=== PATIENT | female | born 1990 | race African-American/Black ===

== ENCOUNTER 2022-04-24 15:19 | Day surgery (SDC) | payer OTHER ==
[2022-04-24 15:42] VITALS: BMI 34.0
== END 2022-04-24 18:02 | disposition home or self-care (01) ==
LOC: CSHLD/OP 15:19
PROVIDERS: ATTEND Family Medicine
DX: O36.8130 Decreased fetal movements, third trimester, not applicable or unspecified (principal); Z36.89 Encounter for other specified antenatal screening; Z3A.34 34 weeks gestation of pregnancy
CPT/HCPCS: 76805; 76819

== ENCOUNTER 2022-05-25 09:29 | Inpatient (IN) | payer OTHER ==
[~2022-05-25 09:29] MED LIST: Bupivacaine HCl 0.5%/Epinephrine 1:200,000/PF 30 ml Vial ONE; Bupivacaine/Epinephrine 0.25% 30 ML VIAL ONE; Lidocaine 2% PF 5 ML VIAL ONE; Terbutaline Sulfate 1 MG/ML VIAL ONE
[2022-05-25] MEDS ORDERED: Misoprostol 200 MCG TAB PR PRN (10:33)
[2022-05-25] MEDS ORDERED: Promethazine HCl 25 MG/ML VIAL IM PRN ×4 (10:33→21:42)
[2022-05-25] MEDS ORDERED: Lidocaine 1% (PF) 30 ML VIAL SC PRN (10:33)
[2022-05-25] MEDS ORDERED: Carboprost 250 MCG/ML AMP IM PRN (10:33)
[2022-05-25] MEDS ORDERED: Diphenoxylate HCl/Atropine Tablet PO PRN (10:33)
[2022-05-25] MEDS ORDERED: Butorphanol Tartrate 1 MG/ML VIAL SLOW IVP PRN (10:33)
[2022-05-25] MEDS ORDERED: hydrALAZINE 20 MG/ML VIAL SLOW IVP PRN ×2 (10:33→21:42)
[2022-05-25] MEDS ORDERED: HYDROcodone/Acetaminophen 5/325 mg Tablet PO PRN ×2 (10:33→21:42)
[2022-05-25] MEDS ORDERED: Methylergonovine 0.2 MG/ML VIAL IM PRN (10:33)
[2022-05-25] MEDS ORDERED: Tranexamic Acid 1,000 MG in Sodium Chloride 0.9% 250 ML 250 ML IVPB PRN (10:33)
[2022-05-25] MEDS ORDERED: Acetaminophen 500 MG TAB PO PRN (10:33)
[2022-05-25] MEDS ORDERED: Ibuprofen 800 MG TAB PO PRN (10:33)
[2022-05-25] MEDS ORDERED: Ondansetron PF 4 MG/2 ML Vial IVP PRN ×4 (10:33→21:42)
[2022-05-25] MEDS ORDERED: NS w/ Oxytocin 30 units 500 ML IV SCH ×2 (10:45)
[2022-05-25] MEDS ORDERED: Fentanyl 2 mcg/Bup 0.1% Cadd 100 ML ONE (11:32)
[2022-05-25 11:39] LABS: Hemoglobin 11.2 g/dL (12.0-15.5); Mean Corpuscular HGB CONC 32.7 g/dL (32.0-36.0); Mean Corpuscular Hemoglobin 28.2 pg (27.0-33.0); Mean Corpuscular Volume 86.1 fl (81.6-98.3); Mean Platelet Volume 11.5 fl (7.4-10.4); Platelet Count 204 10x3/uL (150-450); RBC Distribution Width 14.2 % (11.5-14.5); Red Blood Cell (RBC) Count 3.97 10x6/uL (3.90-5.03); White Blood Cell (WBC) Count 4.3 10x3/uL (3.5-10.5)
[2022-05-25] MEDS ORDERED: Lactated Ringer's 500 ML IV PRN (11:43)
[2022-05-25] MEDS ORDERED: ePHEDrine Sulfate 50 MG/10 ML VIAL SLOW IVP PRN (11:43)
[2022-05-25] MEDS ORDERED: Naloxone HCl 0.4 mg/ml Vial IVP PRN ×4 (11:43→16:29)
[2022-05-25] MEDS ORDERED: Moisturizing Cream (Eucerin) 113 GM JAR TOP PRN ×2 (11:43→16:29)
[2022-05-25] MEDS ORDERED: diphenhydrAMINE 50 MG/ML VIAL IVP PRN ×2 (11:43→16:29)
[2022-05-25] MEDS ORDERED: Acetaminophen 325 MG TAB PO PRN (11:43)
[2022-05-25] MEDS ORDERED: Communication Order-Pharmacy FS SCH ×2 (11:45→16:30)
[2022-05-25] MEDS ORDERED: Fentanyl 2 mcg/Bupivacaine 0.1% Cassette 100 ML EPIDURAL SCH (11:45)
[2022-05-25 11:58] VITALS: BMI 33.5
[2022-05-25 12:10] LABS: Syphilis Antibody Nonreactive (Nonreactive); Syphilis Antibody Index 0.03 S/CO (<1.00 Non-Reactive)
[2022-05-25 12:11] LABS: HBSAg Index 0.16 S/CO (0-0.99); Hep B Surf Ag Non-Reactive S/CO (NonReactive)
[2022-05-25] MEDS: Lactated Ringer's 1,000 ML IV SCH (12:25)
[2022-05-25] MEDS ORDERED: CEFAZOLIN 1 GM VIAL ONE (15:30)
[2022-05-25] MEDS ORDERED: Oxytocin 10 UNITS/ML VIAL ONE ×3 (15:30→15:50)
[2022-05-25] MEDS ORDERED: Lidocaine 2% MPF 10 ML AMP (For Epidural Use) ONE (15:30)
[2022-05-25] MEDS ORDERED: CEFAZOLIN 2 GM VIAL ONE (15:30)
[2022-05-25] MEDS ORDERED: ePHEDrine Sulfate 50 MG/10 ML VIAL ONE (15:34)
[2022-05-25 15:37] LABS: RapidComm Collect By CBN
[2022-05-25] MEDS ORDERED: Ondansetron PF 4 MG/2 ML Vial ONE (15:37)
[2022-05-25] MEDS ORDERED: Ketorolac Tromethamine 30 MG/ML VIAL ONE (15:37)
[2022-05-25] MEDS ORDERED: PHENYLEPHRINE-NS 100 MCG/ML 10 ML SYRINGE ONE (15:37)
[2022-05-25] MEDS ORDERED: Morphine PF 10 MG/10 ML VIAL ONE (15:37)
[2022-05-25 15:39] LABS: RapidComm Collect By CBN; pH (Cord, venous) 7.235 (7.250-7.350)
[2022-05-25] MEDS ORDERED: Azithromycin 500 MG VIAL ONE (15:47)
[2022-05-25] MEDS ORDERED: Fentanyl 100 MCG/2 ML VIAL ONE (15:56)
[2022-05-25] MEDS ORDERED: Ondansetron HCl/PF 4 MG/2 ML Vial IVP PRN (16:29)
[2022-05-25] MEDS ORDERED: HYDROmorphone 2 MG/ML VIAL SLOW IVP PRN (16:29)
[2022-05-25] MEDS ORDERED: Meperidine HCl/PF 25 MG/ML VIAL SLOW IVP PRN (16:29)
[2022-05-25] MEDS ORDERED: Ketorolac Tromethamine 30 MG/ML VIAL IVP PRN (16:29)
[2022-05-25] MEDS ORDERED: Promethazine HCl 25 MG SUPP PR PRN (16:29)
[2022-05-25] MEDS ORDERED: Fentanyl 100 MCG/2 ML VIAL SLOW IVP PRN (16:29)
[2022-05-25] MEDS ORDERED: Naloxone HCl 0.4 mg/ml Vial IV PRN (16:29)
[2022-05-25] MEDS ORDERED: Ketorolac Tromethamine 30 MG/ML VIAL IVP SCH (16:30)
[2022-05-25] MEDS ORDERED: metroNIDAZOLE 500 MG in Premix Bag 1 BAG IVPB SCH (16:30)
[2022-05-25 17:44] LABS: SARS-CoV-2 NAA Rapid Test Not Detected (NotDetected)
[2022-05-25] MEDS ORDERED: HYDROmorphone 0.5 MG/0.5 ML SYRINGE SLOW IVP PRN (19:00)
[2022-05-25] MEDS ORDERED: Lanolin Ointment 7 GM TUBE TOP PRN (21:42)
[2022-05-25] MEDS ORDERED: Meperidine HCl/PF 25 MG/ML VIAL IM PRN (21:42)
[2022-05-25] MEDS ORDERED: Bisacodyl 10 MG SUPP PR PRN (21:42)
[2022-05-25] MEDS ORDERED: diphenhydrAMINE 25 MG CAP PO PRN (21:42)
[2022-05-25] MEDS ORDERED: Boostrix 0.5 ML (Tdap) VIAL (>/=7 yrs of age) IM ONE (21:42)
[2022-05-25] MEDS ORDERED: Simethicone Chewable 80 MG TAB PO PRN (21:42)
[2022-05-25] MEDS ORDERED: Docusate 100 MG CAP PO SCH (22:00)
[2022-05-25] MEDS ORDERED: Ferrous Sulfate 325 MG TAB PO SCH (22:00)
[2022-05-25] MEDS: Ketorolac Tromethamine 30 MG/ML VIAL IVP SCH (23:28)
[2022-05-26 05:16] LABS: Hemoglobin 8.7 g/dL (12.0-15.5); Mean Corpuscular HGB CONC 33.3 g/dL (32.0-36.0); Mean Corpuscular Hemoglobin 28.9 pg (27.0-33.0); Mean Corpuscular Volume 86.7 fl (81.6-98.3); Mean Platelet Volume 11.3 fl (7.4-10.4); Platelet Count 149 10x3/uL (150-450); RBC Distribution Width 14.1 % (11.5-14.5); Red Blood Cell (RBC) Count 3.01 10x6/uL (3.90-5.03); White Blood Cell (WBC) Count 7.5 10x3/uL (3.5-10.5)
[2022-05-26] MEDS: Ketorolac Tromethamine 30 MG/ML VIAL IVP SCH ×3 (05:22→16:59)
[2022-05-26] MEDS ORDERED: CEFAZOLIN 2 GM in Sodium Chloride 0.9% 100 ML IVPB SCH (06:30)
[2022-05-26] MEDS ORDERED: metroNIDAZOLE 500 MG in Premix Bag 1 BAG IVPB SCH (06:30)
[2022-05-26] MEDS: HYDROcodone/Acetaminophen 5/325 mg Tablet PO PRN ×4 (07:06→20:30)
[2022-05-26] MEDS: Lactated Ringer's 1,000 ML IV SCH (08:07)
[2022-05-26] MEDS: metroNIDAZOLE 500 MG in Premix Bag 1 BAG IVPB SCH ×3 (08:13→21:48)
[2022-05-26] MEDS: Ferrous Sulfate 325 MG TAB PO SCH ×2 (09:30→20:30)
[2022-05-26] MEDS: Prenatal Vitamin 1 TAB PO SCH (09:30)
[2022-05-26] MEDS: Docusate 100 MG CAP PO SCH ×2 (09:30→20:29)
[2022-05-26] MEDS: CEFAZOLIN 2 GM in Sodium Chloride 0.9% 100 ML IVPB SCH ×2 (14:19→23:12)
[2022-05-26] MEDS: Ibuprofen 800 MG TAB PO SCH (21:47)
[2022-05-26] MEDS ORDERED: Ibuprofen 800 MG TAB PO PRN (22:00)
[2022-05-27] MEDS: HYDROcodone/Acetaminophen 5/325 mg Tablet PO PRN ×5 (02:56→21:50)
[2022-05-27] MEDS: Ibuprofen 800 MG TAB PO SCH ×3 (05:55→21:49)
[2022-05-27] MEDS: CEFAZOLIN 2 GM in Sodium Chloride 0.9% 100 ML IVPB SCH ×3 (05:56→21:55)
[2022-05-27] MEDS: metroNIDAZOLE 500 MG in Premix Bag 1 BAG IVPB SCH ×3 (06:52→21:55)
[2022-05-27] MEDS: Prenatal Vitamin 1 TAB PO SCH (09:17)
[2022-05-27] MEDS: Docusate 100 MG CAP PO SCH ×2 (09:17→21:56)
[2022-05-27] MEDS: Ferrous Sulfate 325 MG TAB PO SCH ×2 (09:17→21:49)
[2022-05-28] MEDS: HYDROcodone/Acetaminophen 5/325 mg Tablet PO PRN ×3 (02:07→13:32)
[2022-05-28] MEDS: Ibuprofen 800 MG TAB PO SCH ×2 (05:42→13:33)
[2022-05-28] MEDS ORDERED: metroNIDAZOLE 500 MG in Premix Bag 1 BAG IVPB SCH (08:00)
[2022-05-28 08:06] VITALS: BP 122/65; TEMP 98.1
[2022-05-28] MEDS: CEFAZOLIN 2 GM in Sodium Chloride 0.9% 100 ML IVPB SCH ×2 (08:30→09:03)
[2022-05-28] MEDS: Prenatal Vitamin 1 TAB PO SCH (08:30)
[2022-05-28] MEDS: Docusate 100 MG CAP PO SCH (08:30)
[2022-05-28] MEDS: Ferrous Sulfate 325 MG TAB PO SCH (08:30)
== END 2022-05-28 15:30 | disposition home or self-care (01) | DRG 788 ==
LOC: CSHLD/OP 09:29 → CSHLD 11:10 → CSHPED 20:35
PROVIDERS: ADMIT Family Medicine; ATTEND Family Medicine
PROC: 10D00Z1 Extraction of Products of Conception, Low, Open Approach (ICD-10-PCS; principal; 2022-05-26)
DX: O42.02 Full-term premature rupture of membranes, onset of labor within 24 hours of rupture (principal); O76 Abnormality in fetal heart rate and rhythm complicating labor and delivery; Z20.822 Contact with and (suspected) exposure to COVID-19; Z37.0 Single live birth; Z79.899 Other long term (current) drug therapy; Z3A.40 40 weeks gestation of pregnancy; J45.909 Unspecified asthma, uncomplicated; O99.52 Diseases of the respiratory system complicating childbirth
CPT/HCPCS: 36415; 51702; 72170; 82805; 85027; 86780; 86850; 86900; 86901; 87340; 99285; J0690; J1170; J1885; J2001; J2274; J2405; J2590; J3010; J3105; J3490; J7120; U0002